=== PATIENT | male | born 1970 | race Caucasian/White ===

== ENCOUNTER 2019-06-17 15:29 | Observation (INO) | payer OTHER ==
[2019-06-17 15:41] VITALS: BMI 31.4
--- NOTE | 2019-06-17 17:29 | PDOC ---
History of Present Illness - General Chief Complaint: Chest Pain Stated Complaint: PAIN Time Seen by Provider: 06/17/19 17:05 History Source: Patient Exam Limitations: No Limitations - History of Present Illness Initial Comments: 06/17/19 17:13 Patient is a 49 year old with HTN, DM, right eye corneal transplant c/o left sided chest pain since about midday. States he was carrying bags to the [facility], then 1/2 hour after he started to feel pain in the left chest that radiates to the back. The pain is constant, throbbing 8/10 which is worse with movement of his arms and taking a deep breath. He left his laundry at the [facility], went home, took his b/p which was 200/132, 188/120. He took meds lorsartan, nifedapine, ASA, drank water rested but the b/p did not go down and so came to the [facility] for evaluation. He has not taken the b/p meds in 1 week, states ran out and got his new Rx yesterday. Father Brain bleed 76 years old. No recent travel. PMD: Dr. Abraham PMHX: as above PSOCHX: Negative EtOH, cigarette, drugs ALL: NKDA GENERAL/CONSTITUTIONAL: [No fever or chills. No weakness. No weight change.] HEAD, EYES, EARS, NOSE AND THROAT: [No change in vision. No ear pain or discharge. No sore throat.] CARDIOVASCULAR: [(+) chest pain (-) shortness of breath.] RESPIRATORY: [No cough, wheezing, or hemoptysis.] GASTROINTESTINAL: [No nausea, vomiting, diarrhea or constipation. No rectal bleeding.] GENITOURINARY: [No dysuria, frequency, or change in urination.] MUSCULOSKELETAL: [No joint or muscle swelling or pain. No neck or back pain.] SKIN AND BREASTS: [No rash or easy bruising.] NEUROLOGIC: [No headache, vertigo, loss of consciousness, or loss of sensation.] PSYCHIATRIC: [No depression or anxiety.] ENDOCRINE: [No increased thirst. No abnormal weight change.] HEMATOLOGIC/LYMPHATIC: [No anemia, easy bleeding, or history of blood clots.] ALLERGIC/IMMUNOLOGIC: [No hives or skin allergy. No latex allergy.] GENERAL: [The patient is awake, alert, and fully oriented, in mild distress.] HEAD: [Normal with no signs of trauma.] EYES: [Pupils equal, round and reactive to light, extraocular movements intact, sclera anicteric, conjunctiva clear.] ENT: [Ears normal, nares patent, oropharynx clear without exudates. Moist mucous membranes.] NECK: [Normal range of motion, supple without lymphadenopathy, JVD, or masses.] LUNGS: [Breath sounds equal, clear to auscultation bilaterally. No wheezes, and no crackles.] HEART: [Regular rate and rhythm, normal S1 and S2 without murmur, rub, chest wall nontender.] ABDOMEN: [Soft, nontender, normoactive bowel sounds. No guarding, no rebound. No masses.] EXTREMITIES: [Normal range of motion, no edema. No clubbing or cyanosis. No cords, erythema, or tenderness.] NEUROLOGICAL: [Cranial nerves II through XII grossly intact. Normal speech, normal gait.] PSYCH: [Normal mood, normal affect.] SKIN: [Warm, Dry, normal turgor, no rashes or lesions noted.] Past History - Past Medical History Allergies/Adverse Reactions: Allergies Allergy/AdvReac Type Severity Reaction Status Date / Time No Known Allergies Allergy Verified 06/17/19 15:42 Home Medications: Ambulatory Orders Aspirin [ASA -] 81 mg PO DAILY 01/25/14 Losartan Potassium [Cozaar -] 25 mg PO DAILY 01/25/14 metFORMIN HCL [Glucophage -] 1,000 mg PO BID 01/25/14 Atorvastatin Ca [Lipitor] 40 mg PO HS 06/17/19 Linagliptin [Tradjenta] 5 mg PO DAILY 06/17/19 Nifedipine [Nifedipine ER] 90 mg PO DAILY 06/17/19 COPD: No Diabetes: Yes HTN: Yes - Immunization History Immunization Up to Date: No - Psycho Social/Smoking Cessation Hx Smoking History: Never smoked Have you smoked in the past 12 months: No Hx Alcohol Use: No Substance Use Type: None *Physical Exam - Vital Signs Last Vital Signs Temp Pulse Resp BP Pulse Ox 98.4 F 97 H 16 158/99 99 06/17/19 19:15 06/17/19 19:15 06/17/19 19:15 06/17/19 19:15 06/17/19 19:15 ED Treatment Course - LABORATORY CBC & Chemistry Diagram: 06/17/19 18:00 06/17/19 18:05 - ADDITIONAL ORDERS Additional order review: Laboratory Results 06/17/19 06/17/19 06/17/19 21:40 18:05 18:05 PT with INR 12.70 INR 1.08 PTT (Actin FS) 33.6 D-Dimer Sodium 137 Potassium 4.1 Chloride 99 Carbon Dioxide 30 Anion Gap 8 BUN 10.6 Creatinine 0.9 Est GFR (CKD-EPI)AfAm 116.65 Est GFR (CKD-EPI)NonAf 100.64 Random Glucose 153 H Calcium 10.0 Total Bilirubin 0.6 AST 47 H ALT 81 H Alkaline Phosphatase 68 Creatine Kinase 210 Creatine Kinase Index No Result Required. CK-MB (CK-2) < 1.0 Troponin I < 0.02 Total Protein 9.4 H Albumin 4.8 06/17/19 18:00 PT with INR INR PTT (Actin FS) D-Dimer 255 Sodium Potassium Chloride Carbon Dioxide Anion Gap BUN Creatinine Est GFR (CKD-EPI)AfAm Est GFR (CKD-EPI)NonAf Random Glucose Calcium Total Bilirubin AST ALT Alkaline Phosphatase Creatine Kinase Creatine Kinase Index CK-MB (CK-2) Troponin I Total Protein Albumin 06/17/19 18:00 RBC 5.81 H MCV 79.7 L MCHC 33.4 RDW 14.6 MPV 9.2 Neutrophils % 58.7 Lymphocytes % 34.7 Monocytes % 4.8 Eosinophils % 1.3 Basophils % 0.5 - RADIOLOGY Radiology Studies Ordered: Category Date Time Status CHEST X-RAY PORTABLE* [RAD] Stat Radiology 06/17/19 18:55 Taken - Medications Given in the ED: ED Medications Discontinued Medications Generic Name Dose Route Start Last Admin Trade Name Freq PRN Reason Stop Dose Admin Aspirin 243 mg 06/17/19 17:40 06/17/19 18:15 Asa - PO 06/17/19 17:41 243 mg ONCE ONE Administration Medical Decision Making - Medical Decision Making 06/17/19 17:13 Patient is a 49 year old with HTN, DM, right eye corneal transplant c/o left sided chest pain since about midday. States he was carrying bags to the [facility], then 1/2 hour after he started to feel pain in the left chest that radiates to the back. The pain is constant, throbbing 8/10 which is worse with movement of his arms and taking a deep breath. He left his laundry at the [facility], went home, took his b/p which was 200/132, 188/120. He took meds lorsartan, nifedipine, ASA, drank water rested but the b/p did not go down and so came to the hosp for evaluation. He has not taken the b/p meds in 1 week, states ran out and got his new Rx yesterday. Father Brain bleed 76 years old. No recent travel. Symptoms consistent with atypical chest pain, with elevated blood pressures Will pursue a chest pain work-up with labs include troponin, EKG, chest x-ray. ASA 81 mg x 3 Patient with markedly elevated blood pressure will monitor and give blood pressure and meds for control if needed. Consider admitting to telemetry OBS for further evaluation EKG: SR at rate 95, normal axis, no ST-T wave changes Chest x-ray negative No acute findings on lab troponin is negative x1 Selected Entries 06/17/19 19:15 Temperature 98.4 F Pulse Rate [ 97 H Apical] Respiratory 16 Rate Blood Pressure 158/99 [Right Arm] O2 Sat by Pulse 99 Oximetry (%) 06/17/19 20:[address] Yung will admit to telemetry OBS Discharge - Discharge Information Problems reviewed: Yes Clinical Impression/Diagnosis: Atypical chest pain Hypertension Qualifiers: Hypertension type: unspecified Qualified Code(s): I10 - Essential (primary) hypertension Condition: Stable - Admission Yes - Follow up/Referral - Patient Discharge Instructions - Post Discharge Activity
[2019-06-17] MEDS ORDERED: ASPIRIN 81 MG CHEWABLE TABLETS PO ONE (17:40)
[2019-06-17] MEDS ORDERED: SODIUM CHLORIDE 1,000 ML IV SCH (17:45)
[2019-06-17] MEDS ORDERED: ASPIRIN 81 MG CHEWABLE TABLETS ONE (18:18)
[2019-06-17 18:24] LABS: BASO % 0.5 % (0-2.0); EOS % 1.3 % (0-4.5); HEMATOCRIT 46.3 % (35.4-49); HEMOGLOBIN 15.5 GM/dL (11.7-16.9); LYMPH % 34.7 % (8-40); MCH 26.6 pg (25.7-33.7); MCHC 33.4 g/dl (32.0-35.9); MEAN CELL VOLUME 79.7 fl (80-96); MEAN PLT VOLUME 9.2 fl (7.5-11.1); MONO % 4.8 % (3.8-10.2); NEUT % 58.7 % (42.8-82.8); PLATELET COUNT 233 K/MM3 (134-434); RBC 5.81 M/mm3 (4.00-5.60); RDW 14.6 % (11.9-15.9); WHITE BLOOD COUNT 7.1 K/mm3 (4.0-10.0)
[2019-06-17 18:51] LABS: ALBUMIN 4.8 g/dl (3.4-5.0); BILIRUBIN,TOTAL 0.6 mg/dL (0.2-1); BLOOD UREA NITROGEN 10.6 mg/dL (7-18); CREATININE 0.9 mg/dL (0.55-1.3); POTASSIUM 4.1 mmol/L (3.5-5.1); TOT PROT 9.4 g/dl (6.4-8.2)
[2019-06-17 22:06] LABS: INR 1.08 (0.83-1.09); PROTHROMBIN TIME (PATIENT) 12.7 SEC (9.7-13.0)
[2019-06-17 22:09] LABS: ACTIVATED PTT 33.6 SECONDS (25.2-36.5)
[2019-06-18] MEDS ORDERED: metFORMIN HCL 500 MG TABLET (FP) ONE (07:10)
[2019-06-18] MEDS ORDERED: INSULIN (NOVOLOG) ASPART 100 UNITS/ML 10ML VIAL ONE ×2 (07:11→16:49)
[2019-06-18] MEDS: metFORMIN HCL 500 MG TABLET (FP) PO SCH ×2 (07:19→16:55)
[2019-06-18] MEDS: INSULIN SLIDING SCALE (NOVOLOG) 1 VIAL SQ SCH ×4 (07:23→21:38)
[2019-06-18 07:50] LABS: BASO % 0.7 % (0-2.0); EOS % 1.7 % (0-4.5); HEMATOCRIT 42.1 % (35.4-49); HEMOGLOBIN 14.1 GM/dL (11.7-16.9); LYMPH % 41.1 % (8-40); MCH 26.5 pg (25.7-33.7); MCHC 33.4 g/dl (32.0-35.9); MEAN CELL VOLUME 79.4 fl (80-96); MEAN PLT VOLUME 8.8 fl (7.5-11.1); MONO % 7.9 % (3.8-10.2); NEUT % 48.6 % (42.8-82.8); PLATELET COUNT 226 K/MM3 (134-434); RBC 5.31 M/mm3 (4.00-5.60); RDW 14.3 % (11.9-15.9)
[2019-06-18 08:22] LABS: ALBUMIN 3.9 g/dl (3.4-5.0); ALK PHOS 57 U/L (45-117); ANION GAP 8 MMOL/L (8-16); BILIRUBIN,TOTAL 0.8 mg/dL (0.2-1); BLOOD UREA NITROGEN 14.4 mg/dL (7-18); CALCIUM 9.1 mg/dL (8.5-10.1); CHLORIDE 100 mmol/L (98-107); CO2 28 mmol/L (21-32); GLUCOSE,RANDOM 251 mg/dL (74-106); POTASSIUM 3.4 mmol/L (3.5-5.1); SGOT/AST 24 U/L (15-37); SGPT/ALT 67 U/L (13-61); SODIUM 136 mmol/L (136-145); TOT PROT 7.7 g/dl (6.4-8.2)
[2019-06-18] MEDS: ASPIRIN COATED 81 MG TABLET.EC PO SCH (11:13)
[2019-06-18] MEDS: LOSARTAN POTASSIUM 25 MG TABLET PO SCH (11:13)
[2019-06-18] MEDS: NIFEdipine E.R. 90 MG TABLET (FP) PO SCH (11:13)
--- NOTE | 2019-06-18 11:51 | CON.CARD ---
Consult Consult Specialty:: Cardiology Referred by:: Medicine Reason for Consultation:: chest pain - History of Present Illness Chief Complaint: chest pain History of Present Illness: 49M h/o HTN, DM, corneal transplant p/w L sided chest pain for one day. Was walking [place] the [employer] carrying bags of laundry, about 30 min later he felt pain in L chest radiating to back. Pain has been constant since it started , worse with changing positions, deep breath. Took BP at home 200/132, then 188 /120. He had not taken his meds that day or the entire week prior as he ran out. Currently chest pain is less severe, no dyspnea, palps, edema, orthopnea, PND - History Source History Provided By: Patient Limitations to Obtaining History: No Limitations - Alcohol/Substance Use Hx Alcohol Use: No - Smoking History Smoking history: Never smoked Have you smoked in the past 12 months: No Home Medications - Allergies Allergies/Adverse Reactions: Allergies Allergy/AdvReac Type Severity Reaction Status Date / Time No Known Allergies Allergy Verified 06/17/19 15:42 - Home Medications Home Medications: Ambulatory Orders Aspirin [ASA -] 81 mg PO DAILY 01/25/14 Losartan Potassium [Cozaar -] 25 mg PO DAILY 01/25/14 metFORMIN HCL [Glucophage -] 1,000 mg PO BID 01/25/14 Atorvastatin Ca [Lipitor] 40 mg PO HS 06/17/19 Linagliptin [Tradjenta] 5 mg PO DAILY 06/17/19 Nifedipine [Nifedipine ER] 90 mg PO DAILY 06/17/19 Family Medical History Family History: Unremarkable Review of Systems - Review of Systems Constitutional: reports: No Symptoms Eyes: reports: No Symptoms HENT: reports: No Symptoms Neck: reports: No Symptoms Cardiovascular: reports: No Symptoms Respiratory: reports: No Symptoms Gastrointestinal: reports: No Symptoms Genitourinary: reports: No Symptoms Musculoskeletal: reports: No Symptoms Integumentary: reports: No Symptoms Neurological: reports: No Symptoms Endocrine: reports: No Symptoms Hematology/Lymphatic: reports: No Symptoms Psychiatric: reports: No Symptoms Vital Signs: Vital Signs Temperature 98.6 F 06/18/19 09:37 Pulse Rate 88 06/18/19 09:37 Respiratory Rate 18 06/18/19 09:37 Blood Pressure 106/74 06/18/19 09:37 O2 Sat by Pulse Oximetry (%) 99 06/18/19 07:31 Constitutional: Yes: Well Nourished, No Distress, Calm Eyes: Yes: Conjunctiva Clear, EOM Intact HENT: Yes: Atraumatic, Normocephalic Neck: Yes: Supple, Trachea Midline Respiratory: Yes: Regular, CTA Bilaterally Gastrointestinal: Yes: Normal Bowel Sounds, Soft Cardiovascular: Yes: Regular Rate and Rhythm JVD: No PMI: Non-Displaced Heart Sounds: Yes: S1, S2 Musculoskeletal: No: Back Pain Edema: No Integumentary: No: Jaundice Neurological: Yes: Alert, Oriented Psychiatric: No: Agitated - Other Data Labs, Other Data: CBC, BMP 06/18/19 07:30 06/18/19 07:30 INR, PTT INR 1.08 (0.83-1.09) 06/17/19 21:40 Troponin, BNP 06/17/19 06/18/19 06/18/19 18:05 01:00 07:30 Troponin I < 0.02 < 0.02 < 0.02 06/18/19 08:30 Troponin I Cancelled Troponin, BNP 06/17/19 06/18/19 06/18/19 18:05 01:00 07:30 Troponin I < 0.02 < 0.02 < 0.02 06/18/19 08:30 Troponin I Cancelled Assessment/Plan EKG: sinus, nl intervals, no ischemic changes CXR: no acute process tele: sinus Chest pain - EKG no ischemic changes, trop neg x3, unlikely ACS - atypical symptoms however given age, risk factors will evaluate with echo, nuclear stress test - monitoring on tele HTN - recently not taking meds, now controlled on home meds - monitor BP DM - manage per primary
--- NOTE | 2019-06-18 13:40 | EKG ---
Test Reason : Blood Pressure : / mmHG Vent. Rate : 097 BPM Atrial Rate : 097 BPM P-R Int : 150 ms QRS Dur : 080 ms QT Int : 352 ms P-R-T Axes : 051 016 066 degrees QTc Int : 447 ms NORMAL SINUS RHYTHM NORMAL ECG NO PREVIOUS ECGS AVAILABLE Confirmed by MD Cosme, Steven ([id number]) on 06/18/2019 1:40:08 PM Referred By: Confirmed By:Steven Aguiar MD
--- NOTE | 2019-06-18 16:17 | HP ---
Admitting History and Physical - Smoking History Smoking history: Never smoked Have you smoked in the past 12 months: No - Alcohol/Substance Use Hx Alcohol Use: No Home Medications - Allergies Allergies/Adverse Reactions: Allergies Allergy/AdvReac Type Severity Reaction Status Date / Time No Known Allergies Allergy Verified 06/17/19 15:42 - Home Medications Home Medications: Ambulatory Orders Aspirin [ASA -] 81 mg PO DAILY 01/25/14 Losartan Potassium [Cozaar -] 25 mg PO DAILY 01/25/14 metFORMIN HCL [Glucophage -] 1,000 mg PO BID 01/25/14 Atorvastatin Ca [Lipitor] 40 mg PO HS 06/17/19 Linagliptin [Tradjenta] 5 mg PO DAILY 06/17/19 Nifedipine [Nifedipine ER] 90 mg PO DAILY 06/17/19 Physical Examination Vital Signs: Vital Signs Temperature 98.8 F 06/18/19 14:36 Pulse Rate 102 H 06/18/19 14:36 Respiratory Rate 17 06/18/19 14:36 Blood Pressure 123/79 06/18/19 14:36 O2 Sat by Pulse Oximetry (%) 99 06/18/19 07:31 Labs: CBC, BMP 06/18/19 07:30 06/18/19 07:30
[2019-06-18] MEDS ORDERED: PT OWN MED DRAWER 7, Y5N ONE (16:49)
[2019-06-18] MEDS ORDERED: ATORVASTATIN CA 40 MG TABLET (FP) PO SCH (22:00)
[2019-06-19] MEDS: metFORMIN HCL 500 MG TABLET (FP) PO SCH ×2 (06:09→16:38)
[2019-06-19] MEDS: INSULIN SLIDING SCALE (NOVOLOG) 1 VIAL SQ SCH ×3 (06:12→16:39)
[2019-06-19] MEDS: LOSARTAN POTASSIUM 25 MG TABLET PO SCH ×2 (08:15→12:39)
[2019-06-19] MEDS ORDERED: PT OWN MED DRAWER 7, Y5N ONE (08:28)
[2019-06-19] MEDS ORDERED: REGADENOSON 0.4 MG/5 ML PRE-FILLED SYRINGE IVPUSH ONE ×2 (09:30→11:26)
--- NOTE | 2019-06-19 12:21 | ECHO ---
Name: NIKOS ARCINIEGA Exam:Adult Echocardiogram Study Date: 06/19/2019 08:30 AM Age: 49 yrs Reason For Study: Chest pain Height: 68 in Weight: 207 lb BSA: 2.1 m2 MMode/2D Measurements & Calculations IVSd: 1.5 cm Ao root diam: 3.4 cm LVIDd: 3.6 cm LA dimension: 2.7 cm LVPWd: 1.4 cm ACS: 2.1 cm EDV(ich): 53.0 ml LVOT diam: 2.2 cm RV S Brandon: 15.3 cm/sec Doppler Measurements & Calculations MV E max brandon: 63.7 cm/sec Ao V2 max: 100.8 cm/sec MV A max brandon: 60.7 cm/sec Ao max P.1 mmHg MV E/A: 1.0 Ao V2 mean: 76.5 cm/sec MV dec time: 0.26 sec Ao mean P.5 mmHg Ao V2 VTI: 19.1 cm MAYDA(V,D): 3.1 cm2 LV V1 max P.7 mmHg TR max brandon: 177.0 cm/sec LV V1 max: 82.4 cm/sec TR max P.8 mmHg PI end-d brandon: 114.0 cm/sec Med Peak E' Brandon: 6.0 cm/sec Med E/e': 10.6 Lat Peak E' Brandon: 8.1 cm/sec Lat E/e': 7.9 Procedure A complete two-dimensional transthoracic echocardiogram was performed (2D, M-mode, Doppler and color flow Doppler). Technically limited study. Left Ventricle The left ventricle is normal in size. There is mild concentric left ventricular hypertrophy. Left ashley tricular systolic function is normal. Ejection Fraction = 60-65%. No regional wall motion abnormalities noted. Right Ventricle The right ventricle is grossly normal size. The right ventricular systolic function is mildly reduced . Atria The left atrial size is normal. Right atrial size is normal. Mitral Valve There is mild mitral annular calcification. There is mild mitral regurgitation. Tricuspid Valve The tricuspid valve is normal in structure and function. There is mild tricuspid regurgitation. Right ventricular systolic pressure is normal. Aortic Valve There is mild aortic sclerosis.;. No aortic regurgitation is present. Pulmonic Valve The pulmonic valve is not well visualized. Trace pulmonic valvular regurgitation. Great Vessels The aortic root is normal size. Pericardium/Pleura There is no pericardial effusion. Interpretation Summary Technically limited study The left ventricle is normal in size. There is mild concentric left ventricular hypertrophy. Left ventricular systolic function is normal. No regional wall motion abnormalities noted. Ejection Fraction = 60-65%. The right ventricular systolic function is mildly reduced. The left atrial size is normal. Right atrial size is normal. There is mild mitral annular calcification. There is mild mitral regurgitation. There is mild tricuspid regurgitation. Right ventricular systolic pressure is normal. There is mild aortic sclerosis. Trace pulmonic valvular regurgitation. There is no pericardial effusion. Jelani Tenorio MD 06/19/2019 12:20 PM
[2019-06-19] MEDS: ASPIRIN COATED 81 MG TABLET.EC PO SCH (12:41)
[2019-06-19] MEDS: NIFEdipine E.R. 90 MG TABLET (FP) PO SCH (12:41)
[2019-06-19 14:03] VITALS: BP 126/88; PULSE 100; TEMP 98.6
--- NOTE | 2019-06-19 16:11 | PN ---
Progress Note (short form) - Note Progress Note: s: no chest pain,palps, dizziness, dyspnea. Current Medications Aspirin (Ecotrin -) 81 mg PO DAILY [facility] Last Admin: 06/19/19 12:41 Dose: 81 mg Atorvastatin Calcium (Lipitor -) 40 mg PO HS [facility] Last Admin: 06/18/19 21:35 Dose: 40 mg Insulin Aspart (Novolog Vial Sliding Scale -) 1 vial SQ ACHS [facility]; Protocol Last Admin: 06/19/19 12:40 Dose: 4 units Losartan Potassium (Cozaar -) 25 mg PO DAILY [facility] Last Admin: 06/19/19 12:39 Dose: Not Given Metformin HCl (Glucophage -) 1,000 mg PO BIDAC [facility] Last Admin: 06/19/19 06:09 Dose: 1,000 mg Nifedipine (Procardia Xl -) 90 mg PO DAILY [facility] Last Admin: 06/19/19 12:41 Dose: 90 mg Vital Signs Period Temp Pulse Resp BP Sys/White Pulse Ox Last 24 Hr 97.8 F-98.6 F 75-100 18-20 113-134/71-88 95-98 Constitutional: Yes: Well Nourished, No Distress, Calm Eyes: Yes: Conjunctiva Clear, EOM Intact HENT: Yes: Atraumatic, Normocephalic Neck: Yes: Supple, Trachea Midline Respiratory: Yes: Regular, CTA Bilaterally Gastrointestinal: Yes: Normal Bowel Sounds, Soft Cardiovascular: Yes: Regular Rate and Rhythm JVD: No PMI: Non-Displaced Heart Sounds: Yes: S1, S2 Musculoskeletal: No: Back Pain Edema: No Integumentary: No: Jaundice Neurological: Yes: Alert, Oriented Psychiatric: No: Agitated Assessment/Plan EKG: sinus, nl intervals, no ischemic changes CXR: no acute process Chest pain - EKG no ischemic changes, trop neg x3, unlikely ACS - echo nl LV function - mibi no ischemia - no further inpatient cardiac workup HTN - recently not taking meds, now controlled on home meds - monitor BP DM - manage per primary
== END 2019-06-19 16:36 | disposition home or self-care (01) ==
LOC: JER 15:29 → JERBED 20:27 → UNDOADMOB 20:27 → OBSVTOIN 23:57 → INTOOBSV 23:57 → J4W 06-18 08:20 → JERBED 06-18 08:20 → J4W 06-19 11:18 → JERBED 06-19 11:18
PROVIDERS: ADMIT Internal Medicine; ATTEND Internal Medicine
PROC: 3E033GC Introduction of Other Therapeutic Substance into Peripheral Vein, Percutaneous Approach (ICD-10-PCS; principal; 2019-06-19)
PROC: 3E0337Z Introduction of Electrolytic and Water Balance Substance into Peripheral Vein, Percutaneous Approach (ICD-10-PCS; 2019-06-19)
DX: R07.89 Other chest pain (principal); I10 Essential (primary) hypertension; E11.9 Type 2 diabetes mellitus without complications; Z79.82 Long term (current) use of aspirin; Z79.84 Long term (current) use of oral hypoglycemic drugs; Z94.7 Corneal transplant status
CPT/HCPCS: 36415; 71045-TC-FY; 78452-TC; 80053; 82550; 82553; 82962; 84484; 85025; 85379; 85610; 85730; 93005; 93010; 93017; 93306-TC; 96374; 99285-25; A9502; G0378; J2785; J7030